=== PATIENT | female | born 1980 | race Caucasian/White ===

== ENCOUNTER 2017-08-31 23:00 | Emergency (ER) | payer OTHER ==
[~2017-08-31] VITALS: Ht 162.6 cm; Wt 70.3 kg
[~2017-08-31 23:00] MED LIST: ADDERALL 30 MG30 MG; BENADRYL25 MG; BUSPIRONE HCL10 MG; FLEXERIL PO; GENERESS FE CH1 EACH PO; HYDROCODONE BT1 EAC1 PO; IBUPROFEN 600600 M1; LOESTRIN 24 FE1 EACH PO; LOMEDIA 24 FE1 EACH; NORCO 5-325 TA1 EACH PO; PREDNISONE50 MG PO; SEASONIQUE; SONATA5 M1; TRAMADOL 50 MG50 MG; VICOPROFEN 2001 EACH PO; VYVANSE50 MG PO
[2017-08-31 23:03] VITALS: BP 151/107
[2017-08-31] MEDS ORDERED: LUNESTA3 MG PO (23:07)
[2017-08-31] MEDS ORDERED: PREDNISONE 20 M20 MG PO (23:08)
[2017-08-31] MEDS ORDERED: NIFEDIPINE10 MG PO (23:31)
== END 2017-08-31 23:49 | disposition home or self-care (01) ==
LOC: ER 23:00
DX: I73.00 Raynaud's syndrome without gangrene (principal); F41.9 Anxiety disorder, unspecified; F10.99 Alcohol use, unspecified with unspecified alcohol-induced disorder; F17.210 Nicotine dependence, cigarettes, uncomplicated; Z88.5 Allergy status to narcotic agent

== ENCOUNTER 2019-11-08 18:22 | Emergency (ER) | payer BC ==
[~2019-11-08] VITALS: Ht 160 cm; Wt 72.6 kg
[~2019-11-08 18:22] MED LIST changes: +LUNESTA3 MG PO; +NIFEDIPINE10 MG PO; +PREDNISONE 20 M20 MG PO
[2019-11-08 20:03] LABS: URINE BILIRUBIN NEGATIVE (Negative); URINE BLOOD 2+ (Negative); URINE CLARITY CLEAR; URINE COLOR YELLOW; URINE GLUCOSE-RANDOM* NEGATIVE (Negative); URINE KETONES NEGATIVE (Negative); URINE LEUKOCYTES-REFLEX NEGATIVE (Negative); URINE NITRITE-REFLEX NEGATIVE (Negative); URINE PROTEIN (DIPSTICK) NEGATIVE (Negative); URINE SPECIFIC GRAVITY >= 1.030 (1.005-1.035); URINE UROBILINOGEN 0.2 E.U./dl (0.2-1.0)
[2019-11-08 20:10] LABS: MUCUS 0-3 Light strn/LPF (None Seen); SQUAMOUS 4-10 Moderate /LPF (0-3)
[2019-11-08 20:11] LABS: CASTS None Seen /LPF (None Seen); URINE WBC-REFLEX 0-5 Rare /HPF (0-5)
[2019-11-08 20:12] LABS: BACTERIA-REFLEX 1-9 Few /HPF (None Seen); CRYSTALS None Seen /LPF (None Seen); URINE RBC 3-10 Few /HPF (0-2)
[2019-11-08 20:50] LABS: HEMATOCRIT 42.5 % (37.0-47.0); HEMOGLOBIN 14.1 gm/dL (12.0-15.0); MCH 33.7 pg (26.0-34.0); MCHC 33.2 g/dL (28.0-37.0); MCV 101.3 fL (80.0-100.0); RBC 4.19 mil/uL (4.20-5.00); RDW 12.3 % (10.5-14.5); WBC 9.9 thou/uL (4.0-11.0)
[2019-11-08 20:56] LABS: CREATININE 0.7 mg/dL (0.6-1.0); POTASSIUM 3.8 mmol/L (3.5-5.1)
[2019-11-08 21:02] LABS: ALBUMIN 3.8 g/dL (3.4-5.0); TOTAL BILIRUBIN 0.4 mg/dL (<0.1-1.0); TOTAL PROTEIN 7.4 g/dL (6.4-8.2)
[2019-11-08] MEDS ORDERED: ACYCLOVIR 800800 MG PO ×3 (21:37→21:58)
[2019-11-08] MEDS ORDERED: KEFLEX500 M1 PO ×3 (21:37→21:58)
[2019-11-08 21:58] VITALS: BP 151/86
== END 2019-11-08 22:34 | disposition home or self-care (01) ==
LOC: ER 18:22
PROVIDERS: Nurse Practitioner; Student in an Organized Health Care Education/Training Program
DX: R10.12 Left upper quadrant pain (principal); F17.210 Nicotine dependence, cigarettes, uncomplicated; F41.9 Anxiety disorder, unspecified; Z88.5 Allergy status to narcotic agent